=== PATIENT | male | born 1930 | race Caucasian/White ===

== ENCOUNTER → 2018-09-28 | Outpatient (CLI) | payer MEDICARE ==
[~2018-09-28] MED LIST: ANTIBIOTIC O500 U/GM TP; HYDROCODONE BIT1 T11 PO; KEFLEX500 M1 PO; NAPROSYN500 MG PO; OCUVITE1 TA1 PO; PREDNISONE50 MG PO; PROAIR HFA8.5 GM INH; ZITHROMAX250 MG PO
--- NOTE | ~2018-09-28 | EKG ---
[place], [place] ELECTROCARDIOGRAM REPORT NAME: NICHOLAS HARRIS UNIT #: [id number] ROOM: DOCTOR: EPIPHANY DRAFT REPORT BIRTHDATE: [birth year] [facility] Test Date: 2018-09-28 Test Time: 11:00:12 Pat Name: NICHOLAS HARRIS Department: Room: Gender: Sed [employer] Teacher: Kacy Encarnacion : 1930 Requested By: JAMILAH WASHINGTON CNP Order Number: [id number] Reading MD: Chuck Haskins MD Measurements Intervals [place] Rate: 46 P: 30 W[place]: 146 QRS: 32 QRSD: 91 T: 24 QT: 444 QTc: 389 Interpretive Statements Sinus bradycardia Abnormal R-wave progression, early transition Baseline wander in lead(s) V5 No previous ECG available for comparison Electronically Signed On 10-03-2018 4:05:34 PDT by Chuck Haskins MD CM:EKGRPT:ELECTROCARDIOGRAM REPORT [id number] JAMILAH WASHINGTON CNP EPIPHANY DRAFT REPORT JAMILAH WASHINGTON CNP
== END | disposition home or self-care (01) ==
LOC: RAD 10:19
DX: Z00.8 Encounter for other general examination (principal); H25.9 Unspecified age-related cataract; J44.9 Chronic obstructive pulmonary disease, unspecified